=== PATIENT | male | born 1980 ===

== ENCOUNTER 2021-05-15 00:03 | Emergency (ER) | payer OTHER ==
[~2021-05-15] VITALS: Ht 167.6 cm; Wt 81.7 kg
== END 2021-05-15 02:20 | disposition home or self-care (01) ==
LOC: ER 00:03
DX: S91.311A Laceration without foreign body, right foot, initial encounter (principal); Z23 Encounter for immunization; W01.198A Fall on same level from slipping, tripping and stumbling with subsequent striking against other object, initial encounter; W45.8XXA Other foreign body or object entering through skin, initial encounter
CPT/HCPCS: 90471; 99282-25